=== PATIENT | female | born 1995 | race Two or more races ===

== ENCOUNTER 2021-01-05 18:25 | Emergency (ER) | payer MEDICAID ==
[~2021-01-05] VITALS: Ht 152.4 cm; Wt 65.8 kg
[2021-01-05 18:26] VITALS: BP 145/70
[2021-01-05 19:02] LABS: Basophils # (auto) 0.1 10 ^3/uL (0-0.2); Basophils % (auto) 0.8 % (0.0-2.0); Eosinophils # (auto) 0.4 10 ^3/uL (0-0.8); Eosinophils % (auto) 3.1 % (0.0-7.0); Hematocrit 42.9 % (36.0-46.0); Hemoglobin 14.9 g/dL (12.2-16.2); Lymphocytes # (auto) 3.4 10 ^3/uL (0.4-5.4); Lymphocytes % (auto) 29.2 % (10.0-50.0); Mean Corpuscular Hemoglobin 29.8 pg (28.0-32.0); Mean Corpuscular Hgb Conc. 34.8 g/dL (32.0-36.0); Mean Corpuscular Volume 85.8 fL (80.0-100.0); Monocytes # (auto) 0.5 10 ^3/uL (0-1.3); Monocytes % (auto) 4.6 % (0.0-12.0); Neutrophils # (auto) 7.3 10 ^3/uL (1.6-8.6); Neutrophils % (auto) 62.3 % (37.0-80.0); Nucleated Red Blood Cells % 0.1 %; Platelet Count (auto) 279 10^3/uL (140-450); Red Cell Distribution Width 12.7 % (11.8-14.3); White Blood Cell 11.7 10^3/uL (4.4-10.8)
[2021-01-05 19:07] LABS: Urine Bacteria NONE SEEN /hpf (None Seen); Urine Blood Negative /uL (Negative); Urine Mucus FEW (None Seen); Urine Specific Gravity 1.032 (1.001-1.035); Urine WBC 1 /hpf (0 - 5)
[2021-01-05 19:12] LABS: Alanine Aminotransferase 33 U/L (13-56); Albumin 3.9 g/dL (3.4-5.0); Anion Gap 7 (5-15); Aspartate Aminotransferase 16 U/L (15-37); BUN/Creatinine Ratio 22.2; Blood Urea Nitrogen 14 mg/dL (7-18); Carbon Dioxide 26 mmol/L (21-32); Chloride 103 mmol/L (98-107); GFR African American 146 mL/min; GFR Non-African American 120 mL/min; Glucose 148 mg/dL (74-106); Magnesium 2.2 mg/dL (1.6-2.6); Potassium 3.8 mmol/L (3.5-5.1); Sodium 136 mmol/L (136-145)
[2021-01-05 19:17] LABS: Alkaline Phosphatase 107 U/L (45-117); Bilirubin, Total 0.6 mg/dL (0.2-1.0); Total Protein 7.5 g/dL (6.4-8.2)
== END 2021-01-05 20:04 | disposition home or self-care (01) ==
LOC: ER 18:25
DX: R07.89 Other chest pain (principal); R51.9 Headache, unspecified; R00.2 Palpitations; R42 Dizziness and giddiness; Z88.0 Allergy status to penicillin
CPT/HCPCS: 36415; 80053; 81001; 81025; 83735; 84484; 85025; 93005

== ENCOUNTER 2023-12-13 18:56 | Emergency (ER) | payer MEDICAID ==
[~2023-12-13] VITALS: Ht 152.4 cm; Wt 70.2 kg
[2023-12-13 19:33] VITALS: BP 130/100; PULSE 72; RESP 18; O2SAT 97
[2023-12-13 21:08] LABS: COVID19 ANTIGEN SOFIA FIA NEGATIVE (NEGATIVE); Rapid Influenza A Negative (Negative); Rapid Influenza B Negative (Negative)
== END 2023-12-13 22:18 | disposition left against medical advice (07) ==
LOC: ER 18:56
DX: J02.9 Acute pharyngitis, unspecified (principal); Z53.21 Procedure and treatment not carried out due to patient leaving prior to being seen by health care provider; Z20.822 Contact with and (suspected) exposure to COVID-19
CPT/HCPCS: 36415; 87426; 87804

== ENCOUNTER 2024-02-29 10:07 | Emergency (ER) | payer MEDICAID ==
[~2024-02-29] VITALS: Ht 152.4 cm; Wt 71.3 kg
[2024-02-29 10:54] VITALS: BP 141/85; PULSE 76; RESP 16; TEMP 98.6; O2SAT 95
[2024-02-29] MEDS: cefTRIAXone SOD 1,000 MG VL IM ONE (11:14)
[2024-02-29] MEDS ORDERED: AZIT500T66 PO (11:14)
[2024-02-29] MEDS ORDERED: IBUP-1454 PO (11:14)
== END 2024-02-29 11:23 | disposition home or self-care (01) ==
LOC: ER 10:07
DX: J03.90 Acute tonsillitis, unspecified (principal); H66.92 Otitis media, unspecified, left ear; Z90.49 Acquired absence of other specified parts of digestive tract; Z88.0 Allergy status to penicillin
CPT/HCPCS: 99283; J0696

== ENCOUNTER 2025-02-06 17:25 | Emergency (ER) | payer MEDICAID ==
[~2025-02-06] VITALS: Ht 152.4 cm; Wt 72.4 kg
[~2025-02-06 17:25] MED LIST: AZIT500T66 PO; IBUP-1454 PO
[2025-02-06] MEDS ORDERED: COROSUS RIGHT EAR (17:49)
[2025-02-06] MEDS ORDERED: BACDST PO (17:49)
--- NOTE | 2025-02-06 17:53 | ED.PDOC ---
History of Present Illness HPI Comments 29-year-old female who comes in with chief complaint of right ear pain. The patient states that the symptoms started on Monday. She denies any discharged but states that the pain seems to be worsening. The patient was unable to see her primary care doctor so came to the emergency department's for evaluation. Chief Complaint: Earache Time Seen by MD: 17:33 Primary Care Provider: [facility] Reviewed Notes: Nurses Notes, Medications, Allergies (Allergies to penicillin) Allergies: Coded Allergies: Penicillins (Verified Allergy, Unknown, 01/05/21) Home Meds Active Scripts [id number]-[id number]-[id number] (Otic) (Cortisporin Otic Susp) [address], 3 DROP RIGHT EAR TID for 5 Days, #10 ML Prov:LI SALGADO MD 02/06/25 Sulfamethoxazole W/Trimethopri (Bactrim Ds Tablet) 1 Tab Tb, 1 TAB PO BID for 7 Days, #14 TAB Prov:LI SALGADO MD 02/06/25 Ibuprofen (Ibuprofen) 600 Mg Tab, 1 TAB PO TID, #30 TAB Prov:AIDEE SHIPMAN 02/29/24 Azithromycin (Azithromycin) 500 Mg Tab, 1 TAB PO DAILY, #6 TAB Prov:AIDEE SHIPMAN 02/29/24 Information Source: Patient Mode of Arrival: Ambulatory Severity: Mild Timing: Days Duration: Since onset Prehospital treatment: None Location: Right ear pain but no drainage at this time Past Medical History PAST MEDICAL HISTORY: Denies Surgical History: Cholecystectomy AWS CONSULTANT History: No Pertinent AWS CONSULTANT History Family History Family History: Reviewed,noncontributory to illness, Family hx of DM, Family hx of HTN Social History Smoker: Non-Smoker Alcohol: Denies ETOH Use Drugs: Denies Drug Use Lives In: Home Physical Exam General Appearance: No Apparent Distress HEENT: Pharynx Normal, TM Abnormal (R) (There is redness to the TM as well as the canal with some tenderness to movement) Neck: Full Range of Motion, Non-Tender, Normal, Normal Inspection Respiratory: Chest Non-Tender, Lungs Clear, No Accessory Muscle Use, No Respiratory Distress, Normal Breath Sounds Cardiovascular: No Edema, No JVD, No Murmur, No Gallop, Normal Peripheral Pulses, Regular Rate/Rhythm Breast Exam: Deferred Gastrointestinal: No Organomegaly, Non Tender, No Pulsatile Mass, Normal Bowel Sounds, Soft Genitalia: Deferred Pelvic: Deferred Rectal: Deferred Extremities: No calf tenderness, Normal capillary refill, Normal inspection, Normal range of motion, Non-tender, No pedal edema Musculoskeletal : Apperance: Normal Neurologic: Alert, bread packer II-XII nml as Tested, No Motor Deficits, Normal Affect, Normal Mood, No Sensory Deficits Cerebellar Function: Normal Reflexes: Normal Skin: Dry, Normal Color, Warm Lymphatic: No Adenopathy Was a procedure done? Was a procedure done?: No Differential Dx Considerations may include: Otitis media, otitis externa X-Ray, Labs, Meds, VS Vital Signs Date Time Temp Pulse Resp B/P (MAP) Pulse Ox O2 Delivery O2 Flow Rate FiO2 02/06/25 17:35 98.8 93 14 149/99 (116) 97 98.8 Time of 1ST Reevaluation: 18:05 Reevaluation 1ST: Improved Patient Education/Counseling: Diagnosis, Treatment, Prognosis, Need For Follow Up Family Education/Counseling: No Family Present Departure 1 Departure Time of Disposition: 18:05 Impression: Primary Impression: Right otitis media Qualified Codes: H66.91 - Otitis media, unspecified, right ear Disposition: 01 HOME / SELF CARE / HOMELESS Condition: Fair e-Prescriptions Syqjrfty-Ujmculmfj-Ja (Otic) (Cortisporin Otic Susp) [address] 3 DROP RIGHT EAR TID for 5 Days, #10 ML Prov: LI SALGADO MD 02/06/25 Sulfamethoxazole W/Trimethopri (Bactrim Ds Tablet) 1 Tab Tb 1 TAB PO BID for 7 Days, #14 TAB Prov: LI SALGADO MD 02/06/25 Discharged With: Self Critical Care Note Critical Care Time?: No Stability Stability form required: No Heart Score Heart Score: Heart Score Response (Comments) Value History N/A 0 EKG N/A 0 Age N/A 0 Risk Factors N/A 0 Troponin N/A 0 Total 0 LI SALGADO MD February 06, 2025 17:53
[2025-02-06 18:47] VITALS: BP 139/58; PULSE 70; RESP 16; TEMP 99; O2SAT 95
== END 2025-02-06 18:52 | disposition home or self-care (01) ==
LOC: ER 17:25
DX: H66.91 Otitis media, unspecified, right ear (principal); Z90.49 Acquired absence of other specified parts of digestive tract; Z88.0 Allergy status to penicillin